=== PATIENT | male | born 1960 | race Two or more races ===

== ENCOUNTER 2021-11-21 08:33 | Emergency (ER) | payer OTHER ==
[~2021-11-21] VITALS: Ht 167.6 cm; Wt 85.3 kg
[2021-11-21 09:04] VITALS: BP 134/82
[2021-11-21] MEDS ORDERED: AMOX-277 PO (09:04)
== END 2021-11-21 09:17 | disposition home or self-care (01) ==
LOC: ER 08:33
DX: H66.91 Otitis media, unspecified, right ear (principal); I10 Essential (primary) hypertension